=== PATIENT | male | born 1980 ===

== ENCOUNTER 2018-01-13 12:48 | Emergency (ER) | payer OTHER ==
[2018-01-13 12:55] VITALS: RESP 18; TEMP 97
--- NOTE | 2018-01-13 14:19 | ED PDOC ---
HPI: General Adult Time Seen by Provider: 01/13/18 13:21 Chief Complaint (Nursing): Back Pain History Per: Patient Additional Complaint(s): Pt. states earlier today he was off of a ladder attached to a scafolding and he slipped and was able to catch himself form falling with his R arm. States he was dangling form the ladder with his R arm. He was able to place himself back onto the ladder but developed R sided flank pain. Reports no blunt trauma. Pt. was seen in [facility] and had x-rays of his thoracic and LS spine done but was subsequently told to come to ED as x-rays showed a questionable vertebral fracture on both thoracic and LS spine x-rays. Denies head injury, chest pain, SOB, numbness, tingling, weakness, arm pain, leg pain, headache, hematuria. Past Medical History Reviewed: Historical Data, Nursing Documentation, Vital Signs Vital Signs: Last Vital Signs Temp 97 F L 01/13/18 12:51 Pulse 62 01/13/18 12:51 Resp 18 01/13/18 12:51 BP 136/85 01/13/18 12:51 Pulse Ox 100 01/13/18 15:48 - Family History Family History: States: No Known Family Hx - Home Medications Home Medications: Ambulatory Orders Medication Instructions Recorded Cyclobenzaprine [Cyclobenzaprine 10 mg PO Q8 PRN #14 tab 01/13/18 HCl] Naproxen [Naprosyn] 500 mg PO BID PRN #30 tab 01/13/18 - Allergies Allergies/Adverse Reactions: Allergies Allergy/AdvReac Type Severity Reaction Status Date / Time No Known Allergies Allergy Verified 01/13/18 12:51 Review of Systems ROS Statement: Except As Marked, All Systems Reviewed And Found Negative Musculoskeletal: Positive for: Back Pain Physical Exam - Physical Exam Appears: Positive for: Well, Non-toxic, No Acute Distress Skin: Positive for: Normal Color, Warm. Negative for: Rash Eye Exam: Positive for: Normal appearance Cardiovascular/Chest: Positive for: Regular Rate, Rhythm, Chest Non Tender Respiratory: Positive for: CNT, Normal Breath Sounds Gastrointestinal/Abdominal: Positive for: Normal Exam, Soft. Negative for: Tenderness Back: Positive for: Normal Inspection (no ecchymosis ). Negative for: L CVA Tenderness, R CVA Tenderness, Vertebral Tenderness (throughout entire spine including cervical spine) Extremity: Positive for: Normal ROM Neurologic/Psych: Positive for: Alert, Oriented, Gait (steady, unassisted). Negative for: Aphasia, Facial Droop - Laboratory Results Result Diagrams: 01/13/18 14:00 01/13/18 14:00 - ECG O2 Sat by Pulse Oximetry: 100 - Progress ED Course And Treament: CT cervical and LS spine w/o contrast ordered. Labs ordered. 1540 UA showed no hematuria. HgB 15.[address] LS spine w/o contrast: No severe stenosis throughout. A mild generalized disc bulge at L4-5 is complicated by a small left paracentral disc herniation with mild central stenosis resulting overall. No bony central canal or neural foraminal stenosis. A small central protrusion overlies minimal disc bulging at L5-S1 without significant stenosis resulting though bilateral S1 nerve roots are encroached by disc bulge. CT thoracic spine w/o contrast: Unremarkable CT of the thoracic spine. Patient informed of results and instructed to f/u with [facility] for further evaluation. No CVA tenderness b/l, no abdominal tenderness b/l, No cervical spine tenderness. Disposition - Clinical Impression Clinical Impression: Back strain - Patient ED Disposition Is Patient to be Admitted: No - Disposition Referrals: [facility] [Outside] [facility] [Outside] Disposition: Routine/Home Disposition Time: 16:33 Condition: IMPROVED Prescriptions: Cyclobenzaprine [Cyclobenzaprine HCl] 10 mg PO Q8 PRN #14 tab PRN Reason: Muscle Spasm Naproxen [Naprosyn] 500 mg PO BID PRN #30 tab PRN Reason: Pain Instructions: Muscle Strain (DC), Back Exercises Forms: [facility] (Uzbek) Print Language: SWAZI
[2018-01-13 14:27] LABS: SQUAMOUS EPITHIAL < 1 /hpf (0-5); URINE BILIRUBIN NEGATIVE (NEGATIVE); URINE BLOOD NEGATIVE (NEGATIVE); URINE CLARITY CLEAR (Clear); URINE COLOR STRAW (YELLOW); URINE GLUCOSE (UA) NEG (Normal); URINE LEUKOCYTE ESTERASE NEG Leu/uL (Negative); URINE PROTEIN NEGATIVE (NEGATIVE); URINE UROBILINOGEN 0.2-1.0 mg/dL (0.2-1.0)
[2018-01-13 14:28] LABS: BASO % 0.5 % (0.0-2.0); EOS # 0.1 K/uL (0.0-0.7); EOS % 0.7 % (0.0-4.0); HEMOGLOBIN 15.7 g/dL (12.0-18.0); LYMPH # 3.5 K/uL (1.0-4.3); MEAN CELL VOLUME 94.9 fl (80.0-94.0); MEAN CORPUSCULAR HGB CONC 34.7 g/dL (33.0-37.0); MEAN PLATELET VOLUME 8.3 fl (7.2-11.7); MONO # 0.7 K/uL (0.0-0.8); MONO % 8.1 % (0.0-10.0); NEUT # 4.3 K/uL (1.8-7.0); NEUT % 49.7 % (50.0-75.0); NRBC % 0.2 % (0.0-0.0); RBC 4.77 Mil/uL (4.40-5.90); RED CELL DISTRIBUTION WIDTH 13.2 % (11.5-14.5); WHITE BLOOD COUNT 8.6 K/uL (4.8-10.8)
[2018-01-13 14:32] LABS: ALB/GLOB RATIO 1.2 (1.0-2.1); ALBUMIN 4.5 g/dL (3.5-5.0); ALT/SGPT 139 U/L (21-72); AST/SGOT 51 U/L (17-59); BLOOD UREA NITROGEN 15 mg/dl (9-20); CALCIUM 9.8 mg/dL (8.4-10.2); GFR AFRICAN-AMERICAN > 60; GFR NON-AFRICAN AMERICAN > 60
--- NOTE | 2018-01-13 16:06 | CT ---
PROCEDURE: CT Thoracic Spine without contrast HISTORY: back s/p fall COMPARISON: None. TECHNIQUE: Axial computed tomography images were obtained of the thoracic spine without intravenous contrast. Coronal and sagittal reformatted images were created and reviewed. Radiation dose: Total exam DLP = 855.34 mGy-cm. This CT exam was performed using one or more of the following dose reduction techniques: Automated exposure control, adjustment of the mA and/or kV according to patient size, and/or use of iterative reconstruction technique. FINDINGS: VERTEBRAE: Unremarkable. No fracture. Normal alignment. DISCS/SPINAL CANAL/NEURAL FORAMINA: Within the limits of the CT technique, no definite disc herniation seen. No central canal or neural foraminal stenosis.. PARASPINAL SOFT TISSUES: Unremarkable. OTHER FINDINGS: Incidental limited bilateral basilar dependent atelectasis. IMPRESSION: Unremarkable CT of the thoracic spine.
--- NOTE | 2018-01-13 16:19 | CT ---
PROCEDURE: CT Lumbar Spine without contrast HISTORY: back s/p fall COMPARISON: None. TECHNIQUE: Axial computed tomography images were obtained of the lumbar spine without the use of intravenous contrast. Coronal and sagittal reformatted images were created and reviewed. Radiation dose: Total exam DLP = 659.37 mGy-cm. This CT exam was performed using one or more of the following dose reduction techniques: Automated exposure control, adjustment of the mA and/or kV according to patient size, and/or use of iterative reconstruction technique. FINDINGS: VERTEBRAE: No destructive bony lesion identified. No fracture. Normal alignment. DISCS/SPINAL CANAL/NEURAL FORAMINA: L1-2: Unremarkable. L2-3: Unremarkable. L3-4: Limited disc bulging without bony central canal or neural foraminal stenosis identified. L4-5: No bony central canal or neural foraminal stenosis identified. However, there is a mild generalized disc bulge with a small, left paracentral herniation status in left lateral recess and causing a generalized mild central stenosis, left side greater than right. No significant neural foraminal stenosis bilaterally. L5-S1: A minimal disc bulge appreciate with a small central disc protrusion. Disc bulge encroaches the bilateral descending S1 nerve roots without generalized central stenosis overall. PARASPINAL SOFT TISSUES: Unremarkable. OTHER FINDINGS: None. IMPRESSION: No severe stenosis throughout. A mild generalized disc bulge at L4-5 is complicated by a small left paracentral disc herniation with mild central stenosis resulting overall. No bony central canal or neural foraminal stenosis. A small central protrusion overlies minimal disc bulging at L5-S1 without significant stenosis resulting though bilateral S1 nerve roots are encroached by disc bulge. Further characterization can provided by MRI if clinically warranted.
[2018-01-13 16:49] VITALS: BP 128/78; PULSE 80; O2SAT 98
== END 2018-01-13 17:21 | disposition home or self-care (01) ==
LOC: H.ER 12:48
DX: S39.012D Strain of muscle, fascia and tendon of lower back, subsequent encounter (principal); W11.XXXD Fall on and from ladder, subsequent encounter